=== PATIENT | female | born 1950 | race Caucasian/White ===

== ENCOUNTER 2022-06-08 19:03 | Inpatient (IN) ==
[2022-06-08] MEDS ORDERED: HEPARIN 5,000 UNIT/1 ML VIAL ONE (19:20)
[2022-06-08] MEDS ORDERED: fentaNYL 100 MCG/2 ML VIAL ONE (19:20)
[2022-06-08] MEDS ORDERED: TICAGRELOR 90 MG TABLET ONE (19:20)
[2022-06-08] MEDS ORDERED: MIDAZOLAM 2 MG/2 ML VIAL ONE (19:20)
[2022-06-08] MEDS ORDERED: diphenhydrAMINE 50 MG/1 ML VIAL ONE (19:21)
[2022-06-08] MEDS ORDERED: FAMOTIDINE 20 MG/2 ML VIAL IV ONE (19:21)
[2022-06-08] MEDS ORDERED: methylPREDNISolone SOD SUC 125 MG/2 ML VIAL ONE (19:21)
[2022-06-08] MEDS ORDERED: NITROGLYCERIN DRIP 50 MG/250 ML BOTTLE IV ONE (19:41)
[2022-06-08] MEDS ORDERED: HEPARIN/NACL 0.9% 2 UNITS/ML 3,000 UNIT/1,500 ML BAG IV ONE (19:52)
[2022-06-08 20:10] LABS: Basophils # 0.1 10*3/uL (0.0-0.2); Basophils % 0.5 % (0.0-0.8); Eosinophils # 1.3 10*3/uL (0.0-0.87); Eosinophils % 14.1 % (0.00-10.9); Hematocrit 27.8 VOL% (35.7-47.0); Hemoglobin 9.2 GM/DL (12.0-16.0); Immature Granulocytes % 0.4 %; Immature Granulocytes Absolute 0.04 #; Lymphocytes # 3.2 10*3/uL (1.4-4.0); Lymphocytes % 35.4 % (21.3-54.2); Mean Corpuscular HGB Conc 33.1 GM/DL (32-36); Mean Corpuscular Volume 87.1 FL (87-102); Mean Platelet Volume 9.7 FL (9.6-12.0); Monocytes # 0.6 10*3/uL (0.11-0.8); Monocytes % 6.7 % (1.7-12.7); Neutrophils % 42.9 % (38.7-73.9); Platelet Count 259 T/CUMM (130-400); Red Blood Count 3.19 MC/CUMM (3.8-5.5); Red Cell Distribution Width 13.3 % (9.3-17.3); White Blood Count 9.1 T/CUMM (4-12)
[2022-06-08] MEDS ORDERED: NITROGLYCERIN DRIP 50 MG/250 ML BOTTLE IV PRN (20:12)
[2022-06-08] MEDS ORDERED: GLUCAGON 1 MG VIAL IM PRN (20:27)
[2022-06-08] MEDS ORDERED: DEXTROSE 10% 250 ML BAG IV PRN (20:29)
[2022-06-08 20:32] LABS: Albumin 3.4 G/DL (3.4-5.0); Bilirubin,Total 0.7 MG/DL (0.20-1.00); CKMB % 6.51 %; Calcium 8.3 MG/DL (8.5-10.1); Osmolality,Calculated 268.2 MOS/KG (273-304); Potassium 3.2 MMOL/L (3.5-5.1); Total Protein 5.9 G/DL (6.4-8.2)
[2022-06-08 20:36] LABS: High Sensitive Troponin I* 2693.1 ng/L (0-54)
[2022-06-08 20:41] LABS: Eosinophils 13 % (0-10); Lymphocytes 30 % (20-55); Total Cells Counted 100
[2022-06-08 20:42] LABS: Platelet Estimate Adequate
[2022-06-08] MEDS: INSULIN REGULAR 100 UNIT/ML SUBCUT SCH (22:04)
[2022-06-08] MEDS ORDERED: MORPHINE 2 MG/1 ML SYRINGE IV PRN (23:19)
[2022-06-08] MEDS: ALPRAZolam 0.5 MG TABLET PO PRN (23:42)
[2022-06-09 05:00] LABS: Basophils % 0.3 % (0.0-0.8); Hematocrit 30.4 VOL% (35.7-47.0); Hemoglobin 10.2 GM/DL (12.0-16.0); Immature Granulocytes % 0.3 %; Immature Granulocytes Absolute 0.02 #; Lymphocytes # 0.6 10*3/uL (1.4-4.0); Lymphocytes % 8.8 % (21.3-54.2); Mean Corpuscular HGB Conc 33.6 GM/DL (32-36); Mean Corpuscular Volume 86.1 FL (87-102); Mean Platelet Volume 9.5 FL (9.6-12.0); Monocytes # 0.1 10*3/uL (0.11-0.8); Monocytes % 1.8 % (1.7-12.7); Neutrophils % 88.8 % (38.7-73.9); Platelet Count 264 T/CUMM (130-400); Red Blood Count 3.53 MC/CUMM (3.8-5.5); Red Cell Distribution Width 13.2 % (9.3-17.3); White Blood Count 6.7 T/CUMM (4-12)
[2022-06-09 05:16] LABS: Calcium 8.8 MG/DL (8.5-10.1); Osmolality,Calculated 272.1 MOS/KG (273-304); Potassium 4.3 MMOL/L (3.5-5.1)
[2022-06-09] MEDS: INSULIN REGULAR 100 UNIT/ML SUBCUT SCH ×4 (08:03→22:13)
[2022-06-09] MEDS: LOSARTAN 25 MG TABLET PO SCH (08:15)
[2022-06-09] MEDS: hydroCHLOROthiazide 12.5 MG CAPSULE PO SCH (08:15)
[2022-06-09] MEDS: ASPIRIN EC 81 MG TABLET PO SCH (08:15)
[2022-06-09] MEDS: METOPROLOL SUCCINATE XL 25 MG TABLET PO SCH (08:15)
[2022-06-09] MEDS: SIMVASTATIN 20 MG TABLET PO SCH (08:15)
[2022-06-09] MEDS: LEVOTHYROXINE 75 MCG TABLET PO SCH (11:44)
[2022-06-09] MEDS: ALPRAZolam 0.5 MG TABLET PO PRN ×2 (13:48→22:19)
[2022-06-09] MEDS: PANTOPRAZOLE 40 MG TABLET PO SCH (14:30)
[2022-06-09] MEDS ORDERED: ENOXAPARIN 40 MG/0.4 ML SYRINGE SUBCUT SCH (21:00)
[2022-06-09] MEDS: APIXABAN 5 MG TABLET PO SCH (22:19)
[2022-06-09] MEDS: TEMAZEPAM 15 MG CAPSULE PO PRN (22:20)
[2022-06-10] MEDS: LEVOTHYROXINE 75 MCG TABLET PO SCH (05:39)
[2022-06-10 05:41] LABS: Basophils # 0.1 10*3/uL (0.0-0.2); Basophils % 0.5 % (0.0-0.8); Eosinophils # 0.3 10*3/uL (0.0-0.87); Eosinophils % 2.7 % (0.00-10.9); Hematocrit 29.7 VOL% (35.7-47.0); Immature Granulocytes % 0.3 %; Immature Granulocytes Absolute 0.04 #; Lymphocytes # 2.3 10*3/uL (1.4-4.0); Lymphocytes % 18.2 % (21.3-54.2); Mean Corpuscular HGB Conc 33.7 GM/DL (32-36); Mean Corpuscular Volume 87.4 FL (87-102); Mean Platelet Volume 9.6 FL (9.6-12.0); Monocytes # 0.7 10*3/uL (0.11-0.8); Monocytes % 5.3 % (1.7-12.7); Platelet Count 239 T/CUMM (130-400); Red Cell Distribution Width 13.5 % (9.3-17.3); White Blood Count 12.4 T/CUMM (4-12)
[2022-06-10 05:49] LABS: Calcium 8.9 MG/DL (8.5-10.1); Osmolality,Calculated 257.1 MOS/KG (273-304); Potassium 3.4 MMOL/L (3.5-5.1)
[2022-06-10] MEDS: INSULIN REGULAR 100 UNIT/ML SUBCUT SCH ×4 (08:28→21:23)
[2022-06-10] MEDS: SIMVASTATIN 20 MG TABLET PO SCH (09:31)
[2022-06-10] MEDS: ASPIRIN EC 81 MG TABLET PO SCH (09:32)
[2022-06-10] MEDS: PANTOPRAZOLE 40 MG TABLET PO SCH (09:32)
[2022-06-10] MEDS: CHOLECALCIFEROL 400 UNIT TABLET PO SCH (09:32)
[2022-06-10] MEDS: APIXABAN 5 MG TABLET PO SCH ×2 (09:32→21:24)
[2022-06-10] MEDS: ASCORBIC ACID 500 MG TABLET PO SCH (09:32)
[2022-06-10] MEDS: METOPROLOL SUCCINATE XL 25 MG TABLET PO SCH (09:45)
[2022-06-10] MEDS ORDERED: ONDANSETRON 4 MG/2 ML VIAL IV PRN (11:08)
[2022-06-10] MEDS ORDERED: SODIUM CHLORIDE 0.9% 1,000 ML IV SCH (12:00)
[2022-06-10 12:30] LABS: Osmolality,Calculated 252.5 MOS/KG (273-304); Potassium 3.1 MMOL/L (3.5-5.1)
[2022-06-10] MEDS: LOSARTAN 25 MG TABLET PO SCH (12:58)
[2022-06-10] MEDS: hydroCHLOROthiazide 12.5 MG CAPSULE PO SCH (12:59)
[2022-06-10] MEDS ORDERED: POTASSIUM CHLORIDE 20 MEQ TABLET PO ONE (13:17)
[2022-06-10] MEDS: ALPRAZolam 0.5 MG TABLET PO PRN (14:58)
[2022-06-10] MEDS: POTASSIUM CHLORIDE 20 MEQ TABLET PO SCH ×2 (14:59→21:24)
[2022-06-10] MEDS: TEMAZEPAM 15 MG CAPSULE PO PRN (23:54)
[2022-06-11 05:37] LABS: Calcium 8.7 MG/DL (8.5-10.1); Osmolality,Calculated 265.4 MOS/KG (273-304); Potassium 4.6 MMOL/L (3.5-5.1)
[2022-06-11] MEDS: POTASSIUM CHLORIDE 20 MEQ TABLET PO SCH (05:50)
[2022-06-11] MEDS: LEVOTHYROXINE 75 MCG TABLET PO SCH (05:50)
[2022-06-11] MEDS: INSULIN REGULAR 100 UNIT/ML SUBCUT SCH ×2 (10:02→12:35)
[2022-06-11] MEDS: ALPRAZolam 0.5 MG TABLET PO PRN (10:18)
[2022-06-11] MEDS: METOPROLOL SUCCINATE XL 25 MG TABLET PO SCH (10:18)
[2022-06-11] MEDS: ASPIRIN EC 81 MG TABLET PO SCH (10:18)
[2022-06-11] MEDS: SIMVASTATIN 20 MG TABLET PO SCH (10:18)
[2022-06-11] MEDS: APIXABAN 5 MG TABLET PO SCH (10:18)
[2022-06-11] MEDS: PANTOPRAZOLE 40 MG TABLET PO SCH (10:18)
[2022-06-11] MEDS: ASCORBIC ACID 500 MG TABLET PO SCH (10:18)
[2022-06-11] MEDS: LOSARTAN 25 MG TABLET PO SCH (10:19)
[2022-06-11] MEDS: CHOLECALCIFEROL 400 UNIT TABLET PO SCH (10:28)
[2022-06-11 13:16] VITALS: BP 90/65
[2022-06-11] MEDS ORDERED: APIXABAN 5 MG TABLET PO ONE (13:17)
== END 2022-06-11 16:50 | disposition home or self-care (01) | DRG 287 ==
LOC: N.ADMINP 19:03 → N.CL 19:03 → N.CC 20:11 → N.ADMINP 20:11 → N.TELES 06-09 17:03
PROVIDERS: ADMIT Internal Medicine Cardiovascular Disease; ATTEND Internal Medicine Cardiovascular Disease
PROC: CLCCHCL (ICD-10-PCS; 2022-06-08 19:30)